=== PATIENT | female | born 1965 | race Caucasian/White ===

== ENCOUNTER → 2018-10-03 13:58 | Outpatient (REF) | payer OTHER, MEDICAID, SELFPAY | LOC: LAB 13:58 | PROVIDERS: Visit Provider Nurse Practitioner | DX: N89.8 Other specified noninflammatory disorders of vagina (principal) ==

== ENCOUNTER 2019-09-22 22:27 | Emergency (ER) | payer OTHER, SELFPAY ==
[2019-09-22 22:44] VITALS: BP 140/85; PULSE 80; RESP 16; TEMP 36.4; O2SAT 97; BMI 27.4
--- NOTE | 2019-09-22 23:07 | ED_ITS ---
HPI - URI/Sore Throat General Chief Complaint: Upper Respiratory Symptoms Stated Complaint: states fluid in ears, face ache, sinus clogged Mode of arrival: Ambulatory History of Present Illness HPI Narrative: Five days of upper respiratory symptoms with sinus congestion nasal discharge low-grade headaches. Over the last 24 hours she has developed significantly more pain in her left ear radiating forward into the left jaw and left maxillary sinus. She does not describe significant fevers. She has been using Mucinex to help with her cough and recently started using some topical nose spray to help with the nasal congestion. She has noticed that her left la crimal duct seems to be blocked and there's more tearing from the left eye due to this. Related Data Previous Rx's Medication Instructions Recorded amoxicillin 500 mg PO TID #21 cap 09/22/19 Review of Systems Review of Systems Narrative: All systems reviewed and are unremarkable except as noted in HPI and below Patient History Social History Smoking Status: Never smoker Smoking Status: Never smoker alcohol intake frequency: holidays/special occasions only Substance Use Type: does not use Exam Narrative Exam Narrative: General: Healthy appearing, in mild distress. Able to give a complete and coherent history. Well-nourished well-developed HEENT: Moist mucous membranes, normal sclera with reactive pupils. Left tympanic membrane with an erythematous upper half of the tympanic membrane and bulging purulence material behind the tympanic membrane with some air bubbles inferiorly. There is no drainage along the ear canal itself. Right tympanic membrane is cloudy but not yet bulging or erythematous. Oropharynx is non erythematous and there's no purulence along the tonsillar pillars Neck: No JVD, supple no cervical adenopathy Respiratory: Lungs are clear to auscultation, no wheezing no rales no rhonchi. Full and symmetrical air movement Cardiac: Regular rate and rhythm . She has a loud 4/6 murmur heard along the entire precordium. Abdomen: Soft nontender good bowel tones, no flank pain Skin: Warm and dry, no rashes Neurologic: Grossly neurologically intact with no obvious asymmetries or abnormalities Extremities: No trauma, well perfused Psych: Cooperative, appropriate insight and affect Initial Vital Signs Initial Vital Signs: Vital Signs Temperature 97.6 F 09/22/19 22:44 Pulse Rate 80 09/22/19 22:44 Respiratory Rate 16 09/22/19 22:44 Blood Pressure 140/85 09/22/19 22:44 Pulse Oximetry 97 09/22/19 22:44 Course Vital Signs Vital signs: Vital Signs - 8 hr 09/22/19 22:44 Temperature 97.6 F Pulse Rate 80 Respiratory Rate 16 Blood Pressure 140/85 Pulse Oximetry 97 [facility] - URI/Sore Throat Differential Diagnosis Differential diagnosis: Likely upper respiratory infection, otitis media, sinusitis, viral infection, bronchitis, influenza and pharyngitis Medical Records Attestation: I reviewed the patient's medical records. [facility] Narrative Medical decision making narrative: Increasing pain in the left ear left side of her face that appears to be due to a left otitis media. Will have her try amoxicillin but have recommended that she follow-up with her primary care physician. She is using some nasal and decongestant which may also help with the drainage. Incidentally noted loud holosystolic murmur. Findings shared with patient and I did recommend outpatient follow-up. Safe for home discharge Discharge Plan Departure Patient Disposition: Home Clinical Impression: Heart murmur Otitis media Qualifiers: Otitis media type: suppurative Chronicity: acute Laterality: bilateral Recurrence: non-recurrent Spontaneous tympanic membrane rupture: without spontaneous rupture Qualified Code(s): H66.003 - Acute suppurative otitis media without spontaneous rupture of ear drum, bilateral Activity Restrictions/Additional Instructions: Thank you for coming in today. You do have acute otitis media (an ear infection) on the left side and the right side is not far behind. This explains the pain that you're having on the left side that's radiating into your face. I am going to prescribe 7 days of amoxicillin for this ear infection You do have some sinus congestion but I do not think you have acute sinusitis. Using the Mucinex as well as the nasal spray that your current only using is appropriate for your symptoms. It is also okay to add either ibuprofen or Tylenol to help with symptoms Incidentally, on your clinical exam today, I heard a heart murmur. This was allowed enough heart murmur that I would recommend you follow-up with your primary care physician, ask her to take a listen and see if she thinks there's any additional workup that might be appropriate for this. I hope you feel better soon. Prescriptions: New amoxicillin 500 mg capsule 500 mg PO TID Qty: 21 RF: 0
[2019-09-22 23:28] VITALS: BP 133/77; PULSE 82; RESP 16; O2SAT 99
== END 2019-09-22 23:30 | disposition home or self-care (01) ==
PROVIDERS: Emergency Provider Emergency Medicine
DX: H66.003 Acute suppurative otitis media without spontaneous rupture of ear drum, bilateral (principal); R01.1 Cardiac murmur, unspecified; R09.81 Nasal congestion
CPT/HCPCS: 99281; 99282

== ENCOUNTER → 2019-10-30 07:35 | Outpatient (CLI) | payer OTHER, SELFPAY ==
--- NOTE | 2019-10-30 | DI.ECHO.S_ITS ---
[facility] +---------+ : : [address] : [place] : : : : [id number] : : : : Phone: [phone] Echocardiogram Report + + :Name: ZENIA MCGHEE Study Date: 10/30/2019 Height: 61 in : :[facility] Weight: 160 lb : : Gender: Female BSA: 1.7 m2 : :: 1965 Age: 54 yrs BP: 148/84 mmHg: :Reason For Study: Murmur : :Ordering Physician: Sara Davis Performed By: LRF : :Referring: SARA DAVIS A : + + Interpretation Summary Normal sinus rhythm. Normal LV size, wall thickness, wall motion and LV systolic function. EF is 60-65%. Mild LA enlargement; otherwise normal chamber sizes. No significant valvular abnormalities. No prior study available for comparison. No source of murmur found. Procedure: A two-dimensional transthoracic echocardiogram with color flow and Doppler was performed. The study quality was technically adequate. There is no prior echocardiogram noted for this patient. The patient was in sinus bradycardia with heart rates between 50-78 bpm during the exam. Left Ventricle: The left ventricle is normal in size and wall thickness. The ejection fraction is estimated to be 60-65%. Diastolic parameters suggest probable normal left ventricular diastolic function and normal filling pressures. Right Ventricle: The right ventricle is normal in size and function. Atria: The left atrium is mildly dilated. The right atrium is normal in size. There is no Doppler evidence for an interatrial shunt. Mitral Valve: The mitral valve is normal in structure and function. There is trace mitral regurgitation. Aortic Valve: The aortic valve is trileaflet. The aortic valve opens well. No aortic regurgitation is present. Tricuspid Valve: The tricuspid valve is normal in structure and function. There is mild to moderate tricuspid regurgitation. The right ventricular systolic pressure is estimated to be at least 26 mmHg based on an estimated right atrial pressure of 3 mm Hg. Pulmonic Valve: The pulmonic valve is normal in structure and function. There is no pulmonic valvular regurgitation. Great Vessels: The aortic root is normal size. The dimensions of the ascending aorta are normal. The IVC is of normal diameter and collapses greater than 50% with a sniff. This suggests a low right atrial pressure of 3 mm Hg. Pericardium/ Pleura There is no pericardial effusion. MMode/2D Measurements & Calculations LVIDd: 4.0 cm LVOT diam: 2.3 cm LVIDs: 2.7 cm Ao root diam: 2.9 cm FS: 33.2 % asc Aorta Diam: 3.0 cm EPSS: 0.41 cm Ao Arch Diam (Prox Trans): 2.0 cm IVSd: 0.91 cm LVPWd: 0.96 cm LV baker. diameter/BSA (cm/m^2): 2.3 LV sys. diameter/BSA (cm/m^2): 1.6 LA A2 area: 19.7 cm2 RA long axis: 4.7 cm LA A4 area: 16.6 cm2 RA area: 14.0 cm2 LA length (vol): 4.5 cm RA vol: 35.0 ml LA vol: 61.7 ml RA : 20.4 ml/m2 LA vol index: 35.9 ml/m2 IVC diam: 2.1 cm RVD1 (basal): 3.7 cm RVD2 (mid): 2.7 cm TAPSE: 3.0 cm Doppler Measurements & Calculations Ao V2 max: 110.2 cm/sec LVOT Max Anil: 102.4 cm/sec Ao V2 mean: 72.8 cm/sec LV V1 max P.2 mmHg Ao max P.9 mmHg LV V1 VTI: 23.5 cm Ao mean P.4 mmHg PATRICK(I,D): 3.6 cm2 Ao V2 VTI: 25.9 cm PATRICK(V,D): 3.7 cm2 sev ratio: 0.91 PATRICK indexed to BSA (cm^2/m^2): 2.1 MV E max anil: 76.2 cm/sec TR max anil: 240.2 cm/sec MV A max anil: 84.6 cm/sec TR max P.1 mmHg MV E/A: 0.90 PA V2 max: 70.0 cm/sec Med Peak E' Anil: 10.0 cm/sec PA V2 mean: 48.3 cm/sec E/E' med: 7.6 PA mean P.1 mmHg Lat Peak E' Anil: 11.4 cm/sec PA pr(Accel): 11.6 mmHg E/E' lat: 6.7 E/e' average: 7.1 MV dec time: 0.22 sec MV P1/2t: 58.9 msec MV P1/2t max anil: 74.7 cm/sec SV(LVOT): 94.4 ml MVA(P1/2t): 3.7 cm2 Electronically signed by: Ely Shannon M.D. on Reading Physician:10/30/2019 11:13 PM
== END ==
PROVIDERS: PCP Family Medicine; Referring Provider Family Medicine; Visit Provider Family Medicine
DX: I07.1 Rheumatic tricuspid insufficiency (principal); R01.1 Cardiac murmur, unspecified
CPT/HCPCS: 93306